=== PATIENT | female | born 1985 | race Caucasian/White ===

== ENCOUNTER 2016-09-05 23:13 | Inpatient (IN) | payer OTHER ==
[~2016-09-05] VITALS: Ht 170.2 cm; Wt 77.1 kg
[2016-09-06] MEDS ORDERED: Sodium Chloride LOK Flush 10 mL Syringe IVFLUSH PRN (00:25)
[2016-09-06] MEDS ORDERED: fentaNYL-PF 50 mCg/mL 2 mL Inj IVPUSH PRN ×2 (00:25→00:55)
[2016-09-06] MEDS ORDERED: Hemorrhage Kit, Post Partum XX ONE ×2 (00:25→01:45)
[2016-09-06] MEDS ORDERED: Lactated Ringer's 1,000 ML IV PRN (00:25)
[2016-09-06] MEDS ORDERED: Ondansetron 2 mg/mL 2 mL Inj IVPUSH PRN ×2 (00:25→00:55)
[2016-09-06] MEDS ORDERED: Oxytocin 10 Unit/mL Inj IM PRN ×2 (00:25→01:45)
[2016-09-06] MEDS ORDERED: Carboprost 250 mCg/mL Inj IM PRN ×2 (00:25→01:45)
[2016-09-06] MEDS ORDERED: Methylergonovine 0.2 mg/mL Inj IM PRN ×2 (00:25→01:45)
[2016-09-06] MEDS ORDERED: Oxytocin 30 Units/500 mL LR 30 UNITS in IV Premix 1 EACH IV PRN ×2 (00:25→01:45)
[2016-09-06 00:36] LABS: Mean Corpuscular Hemoglobin 29.8 pg (27.0-35.0); Mean Corpuscular Volume 92.4 fL (81-100)
[2016-09-06] MEDS ORDERED: Lactated Ringer's 1,000 ML IV SCH ×2 (00:53→01:45)
[2016-09-06] MEDS ORDERED: Lactated Ringer's 500 ML IV ONE (00:53)
[2016-09-06] MEDS ORDERED: Atropine 1 mg/10 mL (Code) Syringe IVPUSH PRN (00:55)
[2016-09-06] MEDS ORDERED: fentaNYL 2 mCg/mL-Bupiv 0.125% 100 ML EPIDURAL SCH (00:55)
[2016-09-06] MEDS ORDERED: EPHEDrine Sulfate 50 mg/mL Inj IVPUSH PRN (00:55)
[2016-09-06] MEDS ORDERED: LANOlin HPA 7 Gm Ointment TOPICAL PRN (01:45)
[2016-09-06] MEDS ORDERED: Benzocaine (Dermoplast) 20% 60 Gm Spray TOPICAL PRN (01:45)
[2016-09-06] MEDS ORDERED: Witch Hazel-Glycerin Pads TOPICAL PRN (01:45)
[2016-09-06] MEDS ORDERED: HYDROcodone-APAP 5-325 mg Tablet PO PRN (01:45)
--- NOTE | 2016-09-06 02:16 | PCM.OBVAG ---
Vaginal Delivery Date of Service Sep 06, 2016 Pre Operative Diagnosis Pre Operative Diagnosis ACTIVE LABOR AT TERM Post Operative Diagnosis Post Operative Diagnosis Normal vaginal delivery at term. Procedure Procedure: The delivery was precipitous and was performed by the nursing staff; I was able to clamp the cord, delivered the placenta which was intact with a 3-vessel cord. There was a 2nd degree tear at the mid left labia, repaired using 3-O vicryl suture after 1% lidocaine was placed locally. wt: 7 lb; 9/ 9. Both the mother and the baby boy remained in stable conditions after the delivery. Estimated blood loss: 350 ml; epidural anesthesia was planned, but was not placed due to the fast delivery process. pt was GBS negative. Delivery time: 51, 09/06/16. Obstetical Procedure: Normal Spontaneous Vaginal Delivery Marine Electronics Technician/Masonry Instructor Provider and Masonry Instructor: Delivered by nursing staff; Dr. Wise performed cord clamping, placenta delivery , and tear repair. Indication for Procedure Induction: Active labor Findings Obstetrical Findings: , Cord (3 Vessel), 1 minute (9), 5 minutes (9) Post Procedure Plan Post delivery Condition: Mom stable, Baby stable to Nisreen Vaughn MD Sep 06, 2016 02:16
--- NOTE | 2016-09-06 02:26 | PCM.HPOB ---
Subjective Date of Service: Sep 06, 2016 Referring Provider: Admitting Physician: Reji Osborne MD Primary Care Physician: Reji Osborne MD Attending Physician: Reji Osborne MD Chief Complaint active labor at term History of Present History of Present Illness 31 yr old, now P2, had a normal vaginal delivery soon after arrival at [facility]. Both the pt and her remained in stable conditions after the delivery. pt was GBS negative. Received rhogam at 33 wk gestational age for Rh(-) status. She sees Dr. Osborne for care at [facility]. She had a normal without major problems. OB History: (2), Para (2) Past Medical History Obstetrical History: had a normal vaginal delivery at term 10/28/14. Hx Tobacco Use: No Hx Alcohol Use: No Hx Substance Use: No Past Family History Living Arrangement: with Family Genetic Screening/Counseling Genetic Screening/Counseling: Negative Review of Systems ROS labor contractions, negative otherwise Medications Home medications ferrous sulfate; vitamins. Allergy Coded Allergies: Penicillins (Unverified Allergy, Mild, 09/06/16) Uncoded Allergies: PENICILLIN (Allergy, Mild, 03/30/16) Exam Vital Signs normal vitals. Category 1 tracing. Constitutional: Well-developed, Well-nourished, Normal habitus HEENT: Atraumatic Lungs: Clear to Auscultation, Clear to Percussion, Normal Air Movement Heart: Exam Unremarkable, Regular Rate/Rhythm, Normal S1, Normal S2, No Murmurs /Rubs/Gallops Abdomen: Normal bowel sounds Extremities: Warm Neurological/Psychiatric: Alert, Oriented X3, Cooperative Neuro: Grossly Neurologically Intact Labs/Diagnostics Labs H/H=12.2/37.8 Maternal Blood Type: O Hx Rho(D) Immune Globulin: Yes Group B Strep Results: Negative Previous with GBS: No Rubella: Immune OB Intrapartum Assessment/Plan Assessment Normal vaginal delivery at term, now ; blood type: O, Rh negative; GBS negative. Pain Management: routine care; Rhogam as indicated. Nisreen Wise MD Sep 06, 2016 02:26
[2016-09-06] MEDS ORDERED: Sodium Chloride LOK Flush 10 mL Syringe IVFLUSH SCH (08:30)
[2016-09-07 06:56] LABS: Mean Corpuscular Hemoglobin 30.6 pg (27.0-35.0); Mean Corpuscular Volume 94.3 fL (81-100)
--- NOTE | 2016-09-07 08:16 | PCM.DIOB ---
Obstetrical Disch Instruction Date of Service: Sep 07, 2016 Dates of Hospitalization Date of Hospital Admission Sep 06, 2016 at 00:20 Providers Admitting Physician: Reji Osborne MD Primary Care Physician: Reji Osborne MD Attending Physician: Reji Osborne MD Discharge Diagnosis Problems: (1) Normal delivery Status: Acute ICD Code: O80 (2) Precipitous delivery, delivered (current hospitalization) Status: Acute ICD Code: O62.3 Diet Discharge Diet: No restrictions Activity Discharge Activity-General: Pelvic Rest for 6 weeks, Balance rest and activity , Activity as pain allows Dressing and Incisional Care Hygiene: May shower, Perineal care, Sitz bath, Dermoplast spray, Witch Eli pads, Ice Additional Instructions Discharge Instructions vitamins, ibuprofen and DSS all faxed electronically (through outpatient electronic medical record) to [facility] and to [facility] pharmacy by Dr. Osborne Follow Up Plan Follow-up Provider (F9): Reji Osborne MD Follow-up appointment: Weeks (6) Call your provider for: Fever or Chills, Shortness of breath, Heavy vaginal bleeding, Epigastric pain, Excessive constipation, Vaginal discomfort, Red painful breasts, Other (swollen, painful leg) Reji Osborne MD Sep 07, 2016 08:16
[2016-09-07 10:30] VITALS: BP 104/71; PULSE 64; RESP 16
[2016-09-07 10:37] VITALS: BP 104/71; PULSE 64; RESP 16
[2016-09-07 11:05] VITALS: BP 104/71; PULSE 64; RESP 16
--- NOTE | 2016-09-09 06:32 | DIS ---
[address] [address] DISCHARGE SUMMARY PATIENT: BERONICA PALUMBO : 1985 MR#: [id number] ADMIT: 09/06/2016 JOB ID: [id number] DIS: 09/07/2016 ADMIT DATE: 09/06/2016 DISCHARGE DATE: 09/07/2016 ADMIT DIAGNOSES: 2, para 1 in active labor. DISCHARGE DIAGNOSES: 1. 2, now para 2, status post normal spontaneous vaginal delivery without complications. Did have precipitous labor. 2. Anemia, mild . HOSPITAL COURSE: For details of hospital course, please see the H and P and delivery note by Dr. Wise. the patient did well, ambulating with good p.o. intake and good bowel and bladder function. Her pain was well controlled. hematocrit was 34.8 with a low platelet count of 138 (decreased from hematocrit 37.8 with platelets of 191 prior to delivery). DISCHARGE PHYSICAL EXAMINATION: Showed her to be afebrile with stable vital signs. Pleasant, cooperative, well bonded with her infant. Cardiovascular is S1, S2. No murmurs, rubs or gallops. Respiratory: Clear to auscultation bilaterally without crackles, rhonchi or wheezes. Abdomen is soft, nontender. Uterus was firm, midline at three fingerbreadths below umbilicus. Lower extremities without edema. DISCHARGE INSTRUCTIONS: The patient is discharged home. Usual peripartum complications and the symptoms of those complications as well as how to access care if they occur was reviewed with the patient prior to discharge. Ibuprofen, vitamins and DSS all faxed to patient's outpatient pharmacy. Plan follow up in six weeks at the [facility] with elias Vega
== END 2016-09-07 12:34 | disposition home or self-care (01) | DRG 775 ==
LOC: FBCO 23:13 → FBC 09-06 00:20
PROVIDERS: ADMIT Family Medicine; ATTEND Family Medicine
PROC: 10E0XZZ Delivery of Products of Conception, External Approach (ICD-10-PCS; principal; 2016-09-06)
PROC: 0KQM0ZZ Repair Perineum Muscle, Open Approach (ICD-10-PCS; 2016-09-06)
PROC: 3E0234Z Introduction of Serum, Toxoid and Vaccine into Muscle, Percutaneous Approach (ICD-10-PCS; 2016-09-06)
DX: O62.3 Precipitate labor (principal); O36.0930 Maternal care for other rhesus isoimmunization, third trimester, not applicable or unspecified; O70.1 Second degree perineal laceration during delivery; Z3A.39 39 weeks gestation of pregnancy; Z37.0 Single live birth